=== PATIENT | male | born 1950 | race Caucasian/White ===

== ENCOUNTER 2016-10-30 11:12 | Emergency (ER) | payer MEDICARE, OTHER ==
[2016-10-30] MEDS ORDERED: Sodium Chloride 0.9% 10 ML Syringe FLUSH PRN (11:31)
[2016-10-30] MEDS ORDERED: Sodium Chloride 0.9% 2.5 ML Syringe FLUSH PRN (11:31)
[2016-10-30] MEDS ORDERED: HYDROmorphone 1 MG/ML Syringe IVPUSH PRN (11:32)
[2016-10-30] MEDS ORDERED: Ondansetron 4 MG/2 ML SDV IVPUSH ONE (11:32)
--- NOTE | 2016-10-30 11:38 | EDM.PDOC ---
ED HPI GI/ABDOMINAL - General Chief Complaint: Flank Pain Stated Complaint: KIDNEY STONE Time Seen by Provider: 10/30/16 11:17 Source of Information: Reports: Patient, Provider History Limitations: Reports: No limitations - History of Present Illness INITIAL COMMENTS - FREE TEXT/NARRATIVE: History of present illness: [] Patient started having generalized abdominal pain 3 days ago and has progressively worsened. He feels his abdomen is distended his pain is localized to his left flank into his lower abdomen and into his groin. Patient has been nauseated with retching but has not had any vomiting. He states he's not passing much gas, last bowel movement was 3 days ago. Patient was seen in clinic this morning and noted to have an elevated white count, blood in his urine and distended bowel loops on plain film. She was sent to the ED for evaluation to rule out bowel obstruction versus kidney stone. Review of systems: As per history of present illness and below otherwise all systems reviewed and negative. Past medical history: As per history of present illness and as reviewed below otherwise noncontributory. Surgical history: As per history of present illness and as reviewed below otherwise noncontributory. Social history: No reported history of drug or alcohol abuse. Family history: As per history of present illness and as reviewed below otherwise noncontributory. Physical exam: General: Well developed, well nourished in NAD HEENT: Atraumatic, normocephalic, pupils reactive, negative for conjunctival pallor or scleral icterus, mucous membranes moist, throat clear, neck supple, nontender, trachea midline. Lungs: Clear to auscultation, breath sounds equal bilaterally, chest nontender. Heart: S1S2, regular, negative for clicks, rubs, or JVD. Abdomen: Tympanitic to percussion, normal bowel sounds, Soft, distended, mild tenderness . Negative for masses or hepatosplenomegaly. Negative for costovertebral tenderness. Pelvis: Stable nontender. Genitourinary: Deferred. Rectal: Deferred. Extremities: Atraumatic, negative for cords or calf pain. Neurovascular unremarkable. Neuro: Awake, alert, oriented. Cranial nerves II through XII unremarkable. Cerebellum unremarkable. Motor and sensory unremarkable throughout. Exam nonfocal. Diagnostics: [] CT abdomen and pelvis shows 8 mm proximal ureteral stone on the left mild hydronephrosis. Radiologist notes no bowel obstruction. Therapeutics: [] Hydrated patient refused pain meds Impression: []Ureterolithiasis Plan: [] Followup urology, I called Dr. Chand in the ED and he will be seeing him in the office today tramadol for pain Reglan for nausea. Definitive disposition and diagnosis as appropriate pending reevaluation and review of above. - Related Data Allergies/ADRs: Allergies Allergy/AdvReac Type Severity Reaction Status Date / Time No Known Allergies Allergy Verified 10/30/16 11:23 Home Meds: Home Meds Aspirin 81 mg PO BRK 10/30/16 [History] Blood Sugar Diagnostic [[employer] Ultra Test Strips] 1 strip SQ BID 10/30/16 [ History] Doxazosin [Cardura] 4 mg PO DAILY 10/30/16 [History] Hydrochlorothiazide 25 mg PO DAILY 10/30/16 [History] Insulin Glarg,Human.Rec.Analog [LantUS Solostar] 60 unit SQ BID 10/30/16 [ History] Lancets [Onetouch Delica] 1 each SUBCUT ASDIRECTED 10/30/16 [History] Losartan [Cozaar] 100 mg PO DAILY 10/30/16 [History] Metoclopramide HCl [Reglan] 10 mg PO Q6HR PRN #12 tablet 10/30/16 [Rx] [place], Insulin Disposable [Pen Needle] 1 ndl SUBCUT BID 10/30/16 [History] Simvastatin [Zocor] 20 mg PO BEDTIME 10/30/16 [History] amLODIPine [Norvasc] 10 mg PO DAILY 10/30/16 [History] sitaGLIPtin Phos/Metformin HCl [Janumet 50-1,000 MG] 1 tab PO BIDMEALS 10/30/16 [History] traMADol HCl [Tramadol HCl] 50 mg PO Q6H PRN #16 tablet 10/30/16 [Rx] Past Medical History Cardiovascular History: Reports: Hypertension Endocrine/Metabolic History: Reports: Diabetes, type II - Past Surgical History HEENT Surgical History: Reports: Other (see below) Other HEENT Surgeries/Procedures: jaw surgery Social & Family History - Family History Family Medical History: Noncontributory - Tobacco Use Smoking Status *Q: Never Smoker - Caffeine Use Caffeine Use: Reports: Coffee - Recreational Drug Use Recreational Drug Use: No ED ROS GENERAL - Review of Systems Review Of Systems: See Below (History of present illness) ED EXAM, GI/ABD - Physical Exam Exam: See Below (See history of present illness) Course - Vital Signs Last Recorded V/S: Last Vital Signs Temp 36.3 C 10/30/16 11:24 Pulse 109 H 10/30/16 11:24 Resp 18 10/30/16 11:24 BP 149/93 H 10/30/16 11:24 Pulse Ox 94 L 10/30/16 11:24 - Orders/Labs/Meds Orders: Active Orders 24 hr Category Date Time Status HYDROmorphone [Dilaudid] Med 10/30/16 11:32 Active 0.5 mg IVPUSH Q1H PRN Sodium Chloride 0.9% [Normal Saline] 1,000 ml Med 10/30/16 11:45 Active IV .BOLUS Sodium Chloride 0.9% [Saline Flush] Med 10/30/16 11:31 Active 10 ml FLUSH ASDIRECTED PRN Sodium Chloride 0.9% [Saline Flush] Med 10/30/16 11:31 Active 2.5 ml FLUSH ASDIRECTED PRN Peripheral IV Insertion Adult [OM.PC] Stat Oth 10/30/16 11:31 Ordered Medication Orders Hydromorphone HCl (Dilaudid) 0.5 mg IVPUSH Q1H PRN PRN Reason: Pain Sodium Chloride (Normal Saline) 1,000 mls @ 999 mls/hr IV .BOLUS KELIN Last Admin: 10/30/16 12:03 Dose: 999 mls/hr Sodium Chloride (Saline Flush) 10 ml FLUSH ASDIRECTED PRN PRN Reason: Keep Vein Open Sodium Chloride (Saline Flush) 2.5 ml FLUSH ASDIRECTED PRN PRN Reason: Keep Vein Open Meds: Medications Generic Name Dose Route Start Last Admin Trade Name Freq PRN Reason Stop Dose Admin Hydromorphone HCl 0.5 mg 10/30/16 11:32 Dilaudid IVPUSH Q1H PRN Pain Sodium Chloride 1,000 mls @ 999 mls/hr 10/30/16 11:45 10/30/16 12:03 Normal Saline IV 999 mls/hr .BOLUS KELIN Administration Sodium Chloride 10 ml 10/30/16 11:31 Saline Flush FLUSH ASDIRECTED PRN Keep Vein Open Sodium Chloride 2.5 ml 10/30/16 11:31 Saline Flush FLUSH ASDIRECTED PRN Keep Vein Open Discontinued Medications Generic Name Dose Route Start Last Admin Trade Name Reidq PRN Reason Stop Dose Admin Ondansetron HCl 4 mg 10/30/16 11:32 10/30/16 12:03 Laury IVPUSH 10/30/16 11:33 4 mg ONETIME ONE Administration Departure - Departure Time of Disposition: 12:34 Disposition: Home, Self-Care 01 Condition: good Clinical Impression: Ureterolithiasis Prescriptions: Metoclopramide HCl [Reglan] 10 mg PO Q6HR PRN #12 tablet PRN Reason: Nausea traMADol HCl [Tramadol HCl] 50 mg PO Q6H PRN #16 tablet PRN Reason: Pain Instructions: Kidney Stones, [id number], Flank Pain, [id number] Referrals: Madhu Bonilla MD [Primary Care Provider] - Forms: ED Department Discharge Additional Instructions: The following information is given to patients seen in the emergency department who are being discharged to home. This information is to outline your options for follow-up care. We provide all patients seen in our emergency department with a follow-up referral. The need for follow-up, as well as the timing and circumstances, are variable depending upon the specifics of your emergency department visit. If you don't have a primary care physician on staff, we will provide you with a referral. We always advise you to contact your personal physician following an emergency department visit to inform them of the circumstance of the visit and for follow-up with them and/or the need for any referrals to a consulting specialist. The emergency department will also refer you to a specialist when appropriate. This referral assures that you have the opportunity for follow-up care with a specialist. All of these measure are taken in an effort to provide you with optimal care, which includes your follow-up. Under all circumstances we always encourage you to contact your private physician who remains a resource for coordinating your care. When calling for follow-up care, please make the office aware that this follow-up is from your recent emergency room visit. If for any reason you are refused follow-up, please contact the [facility] Emergency Department at and asked to speak to the emergency department charge nurse. Tramadol for pain, Reglan for nausea. Follow up with Dr. Chand's today. He is aware that you have been seen in the emergency room today. [facility] Specialty Care - Urology [address] [place] [id number] - My Orders Last 24 Hours: My Active Orders 10/30/16 11:31 Sodium Chloride 0.9% [Saline Flush] 10 ml FLUSH ASDIRECTED PRN Sodium Chloride 0.9% [Saline Flush] 2.5 ml FLUSH ASDIRECTED PRN Peripheral IV Insertion Adult [OM.PC] Stat 10/30/16 11:32 HYDROmorphone [Dilaudid] 0.5 mg IVPUSH Q1H PRN 10/30/16 11:45 Sodium Chloride 0.9% [Normal Saline] 1,000 ml IV .BOLUS - Assessment/Plan Last 24 Hours: My Active Orders 10/30/16 11:31 Sodium Chloride 0.9% [Saline Flush] 10 ml FLUSH ASDIRECTED PRN Sodium Chloride 0.9% [Saline Flush] 2.5 ml FLUSH ASDIRECTED PRN Peripheral IV Insertion Adult [OM.PC] Stat 10/30/16 11:32 HYDROmorphone [Dilaudid] 0.5 mg IVPUSH Q1H PRN 10/30/16 11:45 Sodium Chloride 0.9% [Normal Saline] 1,000 ml IV .BOLUS
[2016-10-30] MEDS ORDERED: Sodium Chloride 0.9% 1,000 ML IV SCH (11:45)
--- NOTE | 2016-10-30 12:15 | CT ---
CT of the abdomen and pelvis without contrast. HISTORY: Right flank pain TECHNIQUE: Axial CT images were obtained of the abdomen and pelvis without contrast. Coronal and sag ittal reconstructions obtained. FINDINGS: The lung bases are clear, no pleural effusion. Calcified left hilar lymph nodes are noted. The liver, adrenal glands, and pancreas appear unremarkable for noncontrast examination. Splenic gra nulomata are noted. The gallbladder appears normal. There is no bulky retroperitoneal lymphadenopat hy. No abdominal ascites. There is an 8 mm obstructing stone within the proximal left ureter with mild proximal hydronephrosis and perirenal stranding. There are a few small nonobstructing left renal stones also noted. The large and small bowel are normal in caliber without evidence of obstruction. The appendix appear s normal. There is no bulky pelvic lymphadenopathy. No free fluid. No free air. The urinary bladder appears normal. There is a tiny fat-containing umbilical hernia. The visualized osseous structures appear normal. IMPRESSION: 1. There is an 8 mm obstructing stone within the proximal left ureter with mild proximal hydronephro sis. 2. Nonobstructing left renal nephrolithiasis also noted. 3. No evidence of a bowel obstruction.
[2016-10-30 13:13] VITALS: BP 151/100
== END 2016-10-30 13:10 | disposition home or self-care (01) ==
LOC: MW.ED 11:12
DX: N13.2 Hydronephrosis with renal and ureteral calculous obstruction (principal); I10 Essential (primary) hypertension; E11.9 Type 2 diabetes mellitus without complications; Z79.4 Long term (current) use of insulin; Z79.899 Other long term (current) drug therapy; N20.1 Calculus of ureter
CPT/HCPCS: 74176; 96361; 96374; 99203; 99284; J2405; J7040

== ENCOUNTER → 2016-10-30 | Outpatient (CLI) | payer MEDICARE | LOC: MW.CHUR 08:00 | DX: N20.1 Calculus of ureter (principal) | CPT/HCPCS: 99203 ==

== ENCOUNTER 2016-11-02 06:26 | Day surgery (SDC) | payer MEDICARE ==
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
[~2016-11-02 06:26] MED LIST: Lactated Ringers 1,000 ML IV SCH; ceFAZolin 2 GM in Premix Bag 1 BAG IV ONE
[2016-11-02] MEDS ORDERED: fentaNYL 250 MCG/5 ML SDV ONE (07:10)
[2016-11-02] MEDS ORDERED: Propofol 200 MG/20 ML SDV ONE (07:10)
[2016-11-02] MEDS ORDERED: Midazolam 1 MG/ML 2 ML SDV ONE (07:10)
[2016-11-02] MEDS ORDERED: Rocuronium 10 MG/ML 10 ML Syringe ONE (07:10)
[2016-11-02] MEDS ORDERED: Lidocaine 2% 5 ML SDV ONE (07:10)
[2016-11-02] MEDS ORDERED: Ondansetron 4 MG/2 ML SDV ONE (07:10)
[2016-11-02] MEDS ORDERED: Succinylcholine/Normal Saline 200 MG/10 ML Syringe IV ONE (07:13)
[2016-11-02] MEDS ORDERED: Iopamidol 408 MG/ML 50 ML SDV ONE (07:43)
[2016-11-02] MEDS ORDERED: Sodium Chloride 0.9% 20 ML ONE (09:07)
[2016-11-02] MEDS ORDERED: ceFAZolin 1 GM Vial ONE (09:07)
[2016-11-02] MEDS ORDERED: ePHEDrine 50 MG/ML SDV ONE (09:14)
[2016-11-02] MEDS ORDERED: Phenylephrine/Normal Saline 100 MCG/ML 10 ML Syringe ONE (09:28)
--- NOTE | 2016-11-02 10:51 | PCM.POSTAN ---
POST ANESTHESIA ASSESSMENT - MENTAL STATUS Mental Status: alert, oriented - RESPIRATORY Respiratory Status: respiratory rate WNL, airway patent, O2 saturation stable, supplemental oxygen (per nc) - CARDIOVASCULAR CV Status: pulse rate WNL, blood pressure stable - GASTROINTESTINAL GI Status: no symptoms - PAIN Pain Score: 2 - POST OP HYDRATION Hydration Status: adequate & stable - OBSERVATIONS Free Text/Narrative:: Pt stable for discharge to phase II recovery. No apparent anesthesia complications.
--- NOTE | 2016-11-02 12:12 | PCM48HPAN ---
Post Anesthesia Note - EVALUATION WITHIN 48HRS OF ANESTHETIC Vital Signs in Normal Range: Yes Patient Participated in Evaluation: Yes Respiratory Function Stable: Yes Airway Patent: Yes Cardiovascular Function Stable: Yes Hydration Status Stable: Yes Pain Control Satisfactory: Yes Nausea and Vomiting Control Satisfactory: Yes Mental Status Recovered: Yes
[2016-11-02 12:41] VITALS: BP 147/82
--- NOTE | 2016-11-02 14:00 | OR ---
SURGEON: Minda Chand M.D. DATE OF PROCEDURE: 11/02/2016 PREOPERATIVE DIAGNOSIS: Left upper ureteral stone, 8 mm. POSTOPERATIVE DIAGNOSIS: Left upper ureteral stone, 8 mm. OPERATION: Cystoscopy, left ureteral dilatation, and placement of a Glidewire and a guidewire. DESCRIPTION OF PROCEDURE: The urethra was dilated using the guidewire. The flexible ureteroscope was advanced over the guidewire, however that would only go about 4 to 5 cm, so the ureter above that had to be dilated and again, the flexible ureteroscope was advanced over the guidewire, but now only up to the junction of the middle and lower thirds of the ureter. At this point, I decided to just put a double-J stent in and proceeded with a 6-Swiss 26 cm stent alongside the stone. The position of the stent was confirmed with fluoroscopy in the lower end of the bladder. The bladder was emptied and the patient was moved to recovery room in good condition. PLAN: I will see him again in 2 weeks and we will send him up for ESWL. CHARLIE / TONYA /[phone]
--- NOTE | 2016-11-07 10:24 | CR ---
EXAMINATION: Cystoscopy HISTORY: Surgery COMPARISON: CT dated 10/30/2016 TECHNIQUE: 2 views FINDINGS/IMPRESSION: Operative control films demonstrate placement of a left ureteral stent. There i s a calcification noted within the region of the proximal ureter likely the previously visualized st one.
== END 2016-11-02 12:38 | disposition home or self-care (01) ==
LOC: MW.SDS 06:26
PROVIDERS: ATTEND Urology
DX: N20.1 Calculus of ureter (principal); I10 Essential (primary) hypertension; E11.9 Type 2 diabetes mellitus without complications; E78.5 Hyperlipidemia, unspecified; Z79.82 Long term (current) use of aspirin; Z79.899 Other long term (current) drug therapy; E66.9 Obesity, unspecified; Z68.30 Body mass index [BMI] 30.0-30.9, adult; G47.30 Sleep apnea, unspecified; Z98.890 Other specified postprocedural states; Z79.4 Long term (current) use of insulin
CPT/HCPCS: 52332; 76000; 82962; C1769; C2625; J0690; J2250; J2405; J3010; J7120; Q9966; 00910; J2704

== ENCOUNTER 2016-11-16 06:30 | Day surgery (SDC) | payer MEDICARE ==
[2016-11-16 07:22] LABS: CHLORIDE,CL 107 mmol/L (98-110); SODIUM,NA 141 mmol/L (136-146)
[2016-11-16] MEDS ORDERED: Rocuronium 10 MG/ML 10 ML Syringe ONE (07:27)
[2016-11-16] MEDS ORDERED: Ondansetron 4 MG/2 ML SDV ONE (07:27)
[2016-11-16] MEDS ORDERED: Midazolam 1 MG/ML 2 ML SDV ONE (07:27)
[2016-11-16] MEDS ORDERED: Lidocaine 2% 5 ML SDV ONE (07:27)
[2016-11-16] MEDS ORDERED: Propofol 200 MG/20 ML SDV ONE ×2 (07:27→07:30)
[2016-11-16] MEDS ORDERED: fentaNYL 250 MCG/5 ML SDV ONE (07:28)
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
[2016-11-16] MEDS ORDERED: ceFAZolin 1 GM Vial ONE (08:07)
[2016-11-16] MEDS ORDERED: ePHEDrine 50 MG/ML SDV ONE (08:50)
[2016-11-16] MEDS ORDERED: Phenylephrine/Normal Saline 100 MCG/ML 10 ML Syringe ONE (08:50)
[2016-11-16] MEDS ORDERED: fentaNYL 100 MCG/2 ML SDV IVPUSH PRN (09:26)
--- NOTE | 2016-11-16 09:47 | PCM.POSTAN ---
POST ANESTHESIA ASSESSMENT - MENTAL STATUS Mental Status: alert, oriented - VITAL SIGNS Pulse Rate: 78 Blood Pressure: 148/85 - RESPIRATORY Respiratory Status: respiratory rate WNL, airway patent, O2 saturation stable - CARDIOVASCULAR CV Status: pulse rate WNL, blood pressure stable - GASTROINTESTINAL GI Status: no symptoms - PAIN Pain Score: 0 (c/o sore throat, worse than pre procedure) - POST OP HYDRATION Hydration Status: adequate & stable - OBSERVATIONS Free Text/Narrative:: use cough drops, cepacol gargle etc. for a few days PRN.
--- NOTE | 2016-11-16 11:07 | OR ---
SURGEON: Minda Chand M.D. DATE OF PROCEDURE: 11/16/2016 PREOPERATIVE DIAGNOSIS: Left upper ureteral stone 8 mm. POSTOPERATIVE DIAGNOSIS: Left upper ureteral stone 8 mm. OPERATION: ESWL. DESCRIPTION OF PROCEDURE: The patient was given general anesthesia on the lithotripsy table. The position of the patient was adjusted so the stone could be treated and eventually received a total of 2400 shocks. The shadow of the stone did not change significantly enough to remove the stent. It essentially remained about the same. With that done, the procedure was terminated. The patient tolerated the procedure well and was moved to recovery room and was in stable condition. PLAN: I will see him in the office next week and arrange for him to have laser lithotripsy. CHARLIE / TONYA /[id number]
[2016-11-16 11:18] VITALS: BP 142/72
== END 2016-11-16 11:30 | disposition home or self-care (01) ==
LOC: MW.SDS 06:30
PROVIDERS: ATTEND Urology
PROC: 0TF7XZZ Fragmentation in Left Ureter, External Approach (ICD-10-PCS; principal; 2016-11-16)
DX: N20.1 Calculus of ureter (principal); E78.00 Pure hypercholesterolemia, unspecified; I10 Essential (primary) hypertension; G47.30 Sleep apnea, unspecified; E11.9 Type 2 diabetes mellitus without complications; E66.9 Obesity, unspecified; Z99.89 Dependence on other enabling machines and devices; Z79.82 Long term (current) use of aspirin; Z79.4 Long term (current) use of insulin; Z79.84 Long term (current) use of oral hypoglycemic drugs; Z79.899 Other long term (current) drug therapy; Z98.890 Other specified postprocedural states; Z68.38 Body mass index [BMI] 38.0-38.9, adult
CPT/HCPCS: 36415; 50590; 80048; 85014; 85018; 85025; J0690; J2250; J2405; J3010; J7120; 00872; J2704

== ENCOUNTER 2016-11-30 06:30 | Day surgery (SDC) | payer MEDICARE ==
[2016-11-30] MEDS ORDERED: Propofol 200 MG/20 ML SDV ONE ×2 (07:22→08:41)
[2016-11-30] MEDS ORDERED: Ondansetron 4 MG/2 ML SDV ONE (07:22)
[2016-11-30] MEDS ORDERED: Lidocaine 2% 5 ML SDV ONE (07:22)
[2016-11-30] MEDS ORDERED: Midazolam 1 MG/ML 2 ML SDV ONE (07:22)
[2016-11-30] MEDS ORDERED: fentaNYL 250 MCG/5 ML SDV ONE (07:22)
[2016-11-30] MEDS ORDERED: ceFAZolin 1 GM Vial ONE (07:24)
[2016-11-30] MEDS ORDERED: Iopamidol 408 MG/ML 50 ML SDV ONE (07:46)
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
[2016-11-30] MEDS ORDERED: fentaNYL 100 MCG/2 ML SDV ONE (08:30)
[2016-11-30] MEDS ORDERED: Phenylephrine/Normal Saline 100 MCG/ML 10 ML Syringe ONE (08:43)
[2016-11-30] MEDS ORDERED: fentaNYL 100 MCG/2 ML SDV IVPUSH PRN (08:46)
--- NOTE | 2016-11-30 10:02 | PCM.POSTAN ---
POST ANESTHESIA ASSESSMENT - MENTAL STATUS Mental Status: alert, oriented - RESPIRATORY Respiratory Status: respiratory rate WNL, airway patent, O2 saturation stable - CARDIOVASCULAR CV Status: pulse rate WNL, blood pressure stable - GASTROINTESTINAL GI Status: no symptoms - POST OP HYDRATION Hydration Status: adequate & stable
--- NOTE | 2016-11-30 11:08 | CR ---
EXAMINATION: Ureteroscopy HISTORY: Lithotripsy COMPARISON: 11/02/2016 TECHNIQUE: Single view FINDINGS/IMPRESSION: A single fluoroscopic image demonstrates a stent projecting over the left abdom en.
[2016-11-30 11:35] VITALS: BP 142/72
--- NOTE | 2016-11-30 13:28 | OR ---
SURGEON: Minda Chand M.D. DATE OF PROCEDURE: 11/30/2016 PREOPERATIVE DIAGNOSIS: Left ureteral stone and left renal pelvis stone. POSTOPERATIVE DIAGNOSIS: Left ureteral stone and left renal pelvis stone. OPERATION: Ureteroscopy, renoscopy, laser lithotripsy, and removal of stones. DESCRIPTION OF PROCEDURE: The patient was given general anesthesia, placed in dorsal lithotomy position, prepped and draped in sterile drapes. Cystourethroscopy was done. The existing double-J stent was taken out. A Glidewire and a guidewire both were advanced up to the stone. The flexible ureteroscope was advanced over the guidewire. The stone was visualized. There was a hard stone and it was broken up into 2 pieces. The Zero-Tip basket was used to remove those 2 pieces and another stone that was in there. At the end, a 6-[place] 26 cm double-J stent was placed. The bladder was emptied. The position of the stent was confirmed with fluoroscopy. The string at the end of the stent was taped to the outside of the penis. The patient tolerated the procedure well and was moved to recovery room in good condition. PLAN: He comes to the office this coming Sunday. The double-J stent will be removed. CHARLIE / TONYA /[id number]
== END 2016-11-30 10:20 | disposition home or self-care (01) ==
LOC: MW.SDS 06:30
PROVIDERS: ATTEND Urology
PROC: 0TF48ZZ Fragmentation in Left Kidney Pelvis, Via Natural or Artificial Opening Endoscopic (ICD-10-PCS; principal; 2016-11-30)
PROC: 0T778DZ Dilation of Left Ureter with Intraluminal Device, Via Natural or Artificial Opening Endoscopic (ICD-10-PCS; 2016-11-30)
DX: N20.2 Calculus of kidney with calculus of ureter (principal); I10 Essential (primary) hypertension; E78.00 Pure hypercholesterolemia, unspecified; G47.30 Sleep apnea, unspecified; E11.9 Type 2 diabetes mellitus without complications; E66.9 Obesity, unspecified; Z98.890 Other specified postprocedural states; Z99.89 Dependence on other enabling machines and devices; Z79.4 Long term (current) use of insulin; Z79.84 Long term (current) use of oral hypoglycemic drugs; Z79.82 Long term (current) use of aspirin; Z79.899 Other long term (current) drug therapy
CPT/HCPCS: 52356; 76000; 82962; C1769; C2625; J0690; J2250; J2405; J3010; J7120; 00918; 88300; J2704; Q9966

== ENCOUNTER 2017-07-31 08:24 | Day surgery (SDC) | payer MEDICARE, OTHER ==
[~2017-07-31 08:24] MED LIST changes: -ceFAZolin 2 GM in Premix Bag 1 BAG IV ONE
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
[2017-07-31] MEDS ORDERED: Propofol 200 MG/20 ML SDV ONE ×2 (10:27→11:05)
[2017-07-31] MEDS ORDERED: Lidocaine 2% 5 ML SDV ONE (10:28)
[2017-07-31] MEDS ORDERED: Glycopyrrolate 0.2 MG/ML SDV ONE (10:43)
--- NOTE | 2017-07-31 11:11 | PCM.OPNOTE ---
- General Post-Op/Procedure Note Date of Surgery/Procedure: 07/31/17 Operative Procedure(s): colonoscopy w snare polypectomy Findings: see dict [id number] Pre Op Diagnosis: surveillence colonoscopy Post-Op Diagnosis: colon polyp Anesthesia Technique: Moderate Sedation Primary Surgeon: Ryley Durham Pathology: mm sessile polyp at 35 cm and 45 cm when scope withdrawal Complications: None Condition: Good
--- NOTE | 2017-07-31 11:48 | OR ---
SURGEON: Ryley Durham MD DATE OF PROCEDURE: 07/31/2017 PREOPERATIVE DIAGNOSIS: Surveillance colonoscopy. POSTOPERATIVE DIAGNOSIS: Colon polyp. PROCEDURE PERFORMED: Colonoscopy with snare polypectomy. COMPLICATIONS: None. DESCRIPTION OF PROCEDURE: The patient was taken to the endoscopy room. A time out was called, patient identified, and procedure identified. Diprivan was then administrated. Patient went from awake to sleep, hearing doctor talking or door closing is normal. Perineum inspection and digital examination were then performed. A well- lubricated colonoscope was gently inserted through the rectum, advanced past the rectosigmoid junction, the descending colon, splenic flexure, transverse colon, hepatic flexure, ascending colon, arrived to the cecum. Cecum was identified as dictated in the finding. Then the scope was carefully withdrawn while attention was paid to the mucosal surface for any abnormality. Air will be sucked out during the scope withdrawal. At the rectum, retroflexed to examine any rectal diseases, fistula or hemorrhoids. During mucosal examination, abnormality or polyp encountered. Using snare equipment, the abnormality or the polyp was then snared off using electrocautery. The Patient tolerated procedure well. There were no intraoperative complications, and Dr. Durham was present throughout the whole procedure. FINDINGS: 1. The patient is easily sedated with LUBRICATION SERVICER and Diprivan. The patient is soundly snoring. 2. Bowel prep is average to above average, very little liquid stool. No semi- formed stool. 3. Colon is rather straight forward. Cecum indicated by ileocecal fold, one- to-one indentation and light emittance is not observed and appendiceal orifice is observed. Mucosa examined upon scope pulling out and the patient does not have diverticulosis. The patient had 2 small polyp of 4 mm, sessile polyps removed with snare polypectomy at distance 45 and 35 when the scope pulling out and retrieved and sent for pathology. No other growth, mass, inflammation, stricture, ulceration, bleeding, or AV malformation. The patient does have mild internal hemorrhoids and mild external hemorrhoid and the patient would benefit from repeat colonoscopy in 3 years from today or if clinically indicated otherwise or if the polyp pathology indicated otherwise. The patient also has a protruding large umbilical hernia that need to be addressed. We will talk about this in the office. PRIMARY SURGEON: SECONDARY SURGEON: SALES FINANCIAL ANALYST: REASON SALES FINANCIAL ANALYST WAS NECESSARY: ROLE OF SALES FINANCIAL ANALYST: L[place] / TONYA /[id number]
--- NOTE | 2017-07-31 13:33 | PCM.POSTAN ---
POST ANESTHESIA ASSESSMENT - MENTAL STATUS Mental Status: Alert, Oriented - RESPIRATORY Respiratory Status: Respiratory Rate WNL, Airway Patent, O2 Saturation Stable - CARDIOVASCULAR CV Status: Pulse Rate WNL, Blood Pressure Stable - POST OP HYDRATION Hydration Status: Adequate & Stable
[2017-07-31 15:10] VITALS: BP 133/73
== END 2017-07-31 11:45 | disposition home or self-care (01) ==
LOC: MW.SDS 08:24
PROVIDERS: ATTEND Surgery
DX: Z12.11 Encounter for screening for malignant neoplasm of colon (principal); D12.6 Benign neoplasm of colon, unspecified; K64.4 Residual hemorrhoidal skin tags; K64.8 Other hemorrhoids; E78.00 Pure hypercholesterolemia, unspecified; I10 Essential (primary) hypertension; G47.30 Sleep apnea, unspecified; E11.9 Type 2 diabetes mellitus without complications; E66.9 Obesity, unspecified; Z68.39 Body mass index [BMI] 39.0-39.9, adult; Z87.442 Personal history of urinary calculi; Z79.82 Long term (current) use of aspirin; Z79.4 Long term (current) use of insulin; Z79.899 Other long term (current) drug therapy; Z98.890 Other specified postprocedural states; Z99.89 Dependence on other enabling machines and devices
CPT/HCPCS: G0121; J7120; 00810; 88305; J2704

== ENCOUNTER 2017-10-09 06:25 | Day surgery (SDC) | payer MEDICARE ==
[~2017-10-09 06:25] MED LIST changes: +ceFAZolin 2 GM in Premix Bag 1 BAG IV ONE
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
[2017-10-09] MEDS ORDERED: Bupivacaine 25%/EPINEPHrine/PF 30 ML ONE (07:16)
[2017-10-09] MEDS ORDERED: Propofol 200 MG/20 ML SDV ONE (07:23)
[2017-10-09] MEDS ORDERED: Lidocaine 2% 5 ML SDV ONE (07:23)
[2017-10-09] MEDS ORDERED: fentaNYL 100 MCG/2 ML SDV ONE (07:23)
[2017-10-09] MEDS ORDERED: Midazolam 1 MG/ML 2 ML SDV ONE (07:24)
[2017-10-09] MEDS ORDERED: Octyl 2-Cyanoacrylate 1 Tube ONE (07:27)
[2017-10-09] MEDS ORDERED: Rocuronium 10 MG/ML 10 ML Syringe ONE (07:38)
[2017-10-09] MEDS ORDERED: Acetaminophen/oxyCODONE 325-7.5 MG Tab PO PRN (07:59)
[2017-10-09] MEDS ORDERED: Dextrose 5% in Water 1,000 ML IV SCH (08:00)
[2017-10-09] MEDS ORDERED: Ondansetron 4 MG/2 ML SDV ONE (08:23)
[2017-10-09] MEDS ORDERED: ePHEDrine 50 MG/ML SDV ONE (08:26)
[2017-10-09] MEDS ORDERED: Glycopyrrolate 0.2 MG/ML SDV ONE (08:34)
[2017-10-09] MEDS ORDERED: Neostigmine Methylsulfate 1 MG/ML 5 ML Syringe ONE (08:34)
[2017-10-09] MEDS ORDERED: fentaNYL 100 MCG/2 ML SDV IVPUSH PRN (08:40)
--- NOTE | 2017-10-09 09:00 | PCM.OPNOTE ---
- General Post-Op/Procedure Note Date of Surgery/Procedure: 10/09/17 Operative Procedure(s): incarcerated umb hernia rep, no mesh used Findings: large hernia sac, small hernia neck of 9 mm, no mesh used; [id number] Pre Op Diagnosis: incarcerated umb hernia Post-Op Diagnosis: Same Anesthesia Technique: General LMA Secondary Surgeon: Ryley Durham Complications: None Condition: Good
[2017-10-09 12:35] VITALS: BP 140/62
--- NOTE | 2017-10-09 13:43 | OR ---
SURGEON: Ryley Durham MD DATE OF PROCEDURE: 10/09/2017 PREOPERATIVE DIAGNOSIS: Incarcerated umbilical hernia. POSTOPERATIVE DIAGNOSIS: Incarcerated umbilical hernia. PROCEDURE PERFORMED: Repair of above with primary repair, no mesh. COMPLICATIONS: None. FINDINGS: Large hernia sac. A small hernia neck of 9 mm. No mesh used. PROCEDURE IN DETAIL: The patient was taken to the operating room and placed in the supine position. Upon induction of general anesthesia, the patient's abdomen was prepped and draped in sterile fashion. Time-out was being called, patient identified, procedure identified, antibiotic was given, and procedure was then started. Vi- Drape has been applied prophylactically and IV Ancef has been given prophylactically and after assessment of appropriate landmark, infraumbilical incision was made and carried around the umbilical stalk and opened up the hernia sac and found the omentum inside, was all pushed down into the peritoneal cavity, and large hernia sac with small hernia neck of 9 mm, primary repair with Ethibond and followed with 3-0 Vicryl to tack down the umbilicus, and skin was approximated by use of 4-0 Monocryl and Dermabond. The patient was awakened, extubated, and transferred to recovery room in hemodynamically stable condition. The patient tolerated the procedure well. There were no intraoperative complications. LONDON / TONYA /[id number]
== END 2017-10-09 11:15 | disposition home or self-care (01) ==
LOC: MW.SDS 06:25
PROVIDERS: ATTEND Surgery
DX: K42.0 Umbilical hernia with obstruction, without gangrene (principal); I10 Essential (primary) hypertension; E78.5 Hyperlipidemia, unspecified; E11.9 Type 2 diabetes mellitus without complications; Z79.82 Long term (current) use of aspirin; Z79.899 Other long term (current) drug therapy; Z87.891 Personal history of nicotine dependence
CPT/HCPCS: 49587; 82962; A9270; J2250; J2405; J3010; J7120; 00830; 88302; J2704

== ENCOUNTER 2020-12-21 08:17 | Emergency (ER) | payer OTHER, MEDICARE ==
[2020-12-21] MEDS ORDERED: Aspirin 81 MG Tab.Chew PO ONE (08:32)
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
[2020-12-21 09:07] LABS: BLOOD UREA NITROGEN,BUN 12 mg/dL (7.0-18.0); CHLORIDE,CL 99 mmol/L (98-107); GLUCOSE RANDOM 241 mg/dL (74-106); LIPASE 40 U/L (73-393); POTASSIUM,K 3.9 mmol/L (3.5-5.1); SODIUM,NA 136 mmol/L (136-148)
[2020-12-21] MEDS ORDERED: Heparin Sodium 5,000 Units/ML Vial IVPUSH ONE (09:13)
[2020-12-21] MEDS ORDERED: Heparin Sodium/0.45% NaCl 500 ML IV SCH ×2 (09:15→09:30)
--- NOTE | 2020-12-21 09:15 | CR ---
Indication: Chest pain Technique: Chest 2 views Comparison: None Findings: Cardiovascular and mediastinum: Heart size and vasculature are normal in caliber and appearance. Lungs and pleural spaces: Lungs are clear. No sign of infiltrate or mass. No sign of pleural effusion. No pneumothorax. Bones and soft tissues: No significant findings. Impression: No acute or significant findings. Dictated by Walter Palomares MD @ 12/21/2020 9:14:[address] Walter Palomares @ Dec 21 2020 9:14AM
[2020-12-21] MEDS ORDERED: Nitroglycerin 0.4 MG Tab.SL SL PRN (09:19)
[2020-12-21] MEDS ORDERED: Morphine 4 MG/ML Syringe IVPUSH ONE (09:19)
[2020-12-21] MEDS ORDERED: Heparin Sodium/0.45% NaCl 500 ML ONE (09:27)
[2020-12-21 09:53] VITALS: BP 149/77; PULSE 79
== END 2020-12-21 10:10 ==
LOC: MW.ED 08:17
DX: I21.4 Non-ST elevation (NSTEMI) myocardial infarction (principal); E78.00 Pure hypercholesterolemia, unspecified; I10 Essential (primary) hypertension; E11.9 Type 2 diabetes mellitus without complications; E66.9 Obesity, unspecified; Z68.39 Body mass index [BMI] 39.0-39.9, adult; Z20.822 Contact with and (suspected) exposure to COVID-19; Z79.4 Long term (current) use of insulin
CPT/HCPCS: 36415; 71046; 80053; 82550; 83690; 83735; 84484; 85025; 85730; 87635; 93005; 96365; 96374; 99291; A9270; J1644; J2270; 93010; U0002

== ENCOUNTER 2022-04-17 08:00 | Day surgery (SDC) | payer MEDICARE ==
[~2022-04-17 08:00] MED LIST changes: +Propofol 200 MG/20 ML SDV ONE; -ceFAZolin 2 GM in Premix Bag 1 BAG IV ONE; +fentaNYL 100 MCG/2 ML SDV ONE
[2022-04-17] MEDS ORDERED: Lactated Ringers 1,000 ML IV SCH (10:15)
[2022-04-17 10:28] VITALS: BP 135/72; PULSE 67
== END 2022-04-17 10:44 | disposition home or self-care (01) ==
LOC: MW.SDS 08:00
PROVIDERS: ATTEND Surgery
DX: Z12.11 Encounter for screening for malignant neoplasm of colon (principal); K62.1 Rectal polyp; I10 Essential (primary) hypertension; E78.00 Pure hypercholesterolemia, unspecified; E11.9 Type 2 diabetes mellitus without complications; E66.9 Obesity, unspecified; I25.2 Old myocardial infarction; G47.30 Sleep apnea, unspecified; Z79.899 Other long term (current) drug therapy; Z98.890 Other specified postprocedural states; Z79.82 Long term (current) use of aspirin; Z79.4 Long term (current) use of insulin; Z87.891 Personal history of nicotine dependence; Z68.39 Body mass index [BMI] 39.0-39.9, adult; Z87.81 Personal history of (healed) traumatic fracture; Z79.84 Long term (current) use of oral hypoglycemic drugs
CPT/HCPCS: 45380; J2704; J3010; J7120; 00812; 88305; 99100